=== PATIENT | female | born 1990 | race Caucasian/White ===

== ENCOUNTER 2019-08-06 17:45 | Emergency (ER) | payer OTHER ==
[~2019-08-06] VITALS: Ht 170.2 cm; Wt 83.9 kg
[2019-08-06 19:16] VITALS: BP 131/79
== END 2019-08-06 19:19 | disposition home or self-care (01) ==
LOC: M.ERS 17:45
DX: M79.641 Pain in right hand (principal); F17.210 Nicotine dependence, cigarettes, uncomplicated

== ENCOUNTER 2020-10-28 17:50 | Emergency (ER) | payer OTHER ==
[~2020-10-28] VITALS: Ht 162.6 cm; Wt 87.5 kg
[2020-10-28 19:40] VITALS: BP 111/70
== END 2020-10-28 19:40 | disposition home or self-care (01) ==
LOC: M.ERS 17:50
DX: S16.1XXA Strain of muscle, fascia and tendon at neck level, initial encounter (principal); R51.9 Headache, unspecified; Z90.49 Acquired absence of other specified parts of digestive tract; Z90.89 Acquired absence of other organs; W18.39XA Other fall on same level, initial encounter; Y93.89 Activity, other specified; Y92.89 Other specified places as the place of occurrence of the external cause; Y99.8 Other external cause status

== ENCOUNTER 2021-06-20 13:14 | Emergency (ER) | payer OTHER ==
[~2021-06-20] VITALS: Ht 162.6 cm; Wt 92.1 kg
[2021-06-20] MEDS ORDERED: IBUPROFEN 800800 M1 PO (14:12)
[2021-06-20 14:21] VITALS: BP 99/67
== END 2021-06-20 14:22 | disposition home or self-care (01) ==
LOC: M.ERS 13:14
DX: S63.91XA Sprain of unspecified part of right wrist and hand, initial encounter (principal); F17.210 Nicotine dependence, cigarettes, uncomplicated; Z90.49 Acquired absence of other specified parts of digestive tract; Z90.89 Acquired absence of other organs; W22.01XA Walked into wall, initial encounter; Y93.89 Activity, other specified; Y92.89 Other specified places as the place of occurrence of the external cause; Y99.8 Other external cause status